=== PATIENT | male | born 1970 | race Caucasian/White ===

== ENCOUNTER 2020-03-28 14:10 | Emergency (ER) | payer OTHER ==
[~2020-03-28] VITALS: Ht 170.2 cm; Wt 103.9 kg
[2020-03-28 14:24] VITALS: Ht 170.2 cm; Wt 103.9 kg
[2020-03-28 15:35] LABS: BASOPHIL % 0.4 % (0-2); PLATELET COUNT 256 x10^3mcL (130-400); RED CELL DISTRIBUTION WIDTH 13.5 % (11.5-14.5)
[2020-03-28 16:00] LABS: CALCIUM 8.8 mg/dL (8.5-10.1); CARBON DIOXIDE 30.3 mmol/L (21-32); CHLORIDE SERUM 107 mmol/L (98-107); CREATININE SERUM 1.2 mg/dL (0.7-1.3); GFR1 > 60 mL/min; GLUCOSE SERUM 86 mg/dL (74-106); POTASSIUM SERUM 4.2 mmol/L (3.5-5.1); SODIUM SERUM 142 mmol/L (136-145)
[2020-03-28 16:05] LABS: ALBUMIN 3.4 g/dL (3.4-5.0); ALKALINE PHOSPHATASE 77 U/L (46-116); ALT/SGPT 51 U/L (16-63); AST/SGOT 24 U/L (15-37); BILIRUBIN TOTAL 0.25 mg/dL (0.20-1.00); TOTAL PROTEIN, SERUM 6.7 g/dL (6.4-8.2)
[2020-03-28 17:50] VITALS: BP 178/106
== END 2020-03-28 17:50 | disposition home or self-care (01) ==
LOC: ED 14:10
PROVIDERS: Emergency Medicine
DX: R60.0 Localized edema (principal); F17.210 Nicotine dependence, cigarettes, uncomplicated; I10 Essential (primary) hypertension; Z98.890 Other specified postprocedural states
CPT/HCPCS: 83880; 99406; J0696; J2405; J3010; J7060; Q0092